=== PATIENT | male | born 1960 | race Caucasian/White ===

== ENCOUNTER 2022-07-19 10:52 | Outpatient (CLI) | payer OTHER, SELFPAY ==
[2022-07-19 13:47] LABS: Chloride* 101 mmol/L (96-114); Potassium* 4.4 mmol/L (3.6-5.1); Sodium* 138 mmol/L (135-149)
[2022-07-19 13:49] LABS: Cholesterol* 135 mg/dL (90-199)
[2022-07-19 13:50] LABS: Blood Urea Nitrogen* 25 mg/dL (7-30); Carbon Dioxide* 30 mmol/L (20-32); Creatinine* 0.9 mg/dL (0.5-1.5); Estimated Glomerular Filt Rate 95 ml/min; Glucose* 86 mg/dL (60-115); Triglycerides* 41 mg/dL (40-149)
[2022-07-19 13:51] LABS: Calcium* 9.4 mg/dL (8.4-10.6); HDL Cholesterol* 46 mg/dL (>=40); LDL Cholesterol Calculated 81 mg/dL (<100)
[2022-07-19 14:21] LABS: PSA Screen* 0.56 ng/mL (0.10-4.00)
== END 2022-07-19 10:53 | disposition home or self-care (01) ==
PROVIDERS: PCP Emergency Medicine; Visit Provider Emergency Medicine
DX: Z00.00 Encounter for general adult medical examination without abnormal findings (principal); E78.5 Hyperlipidemia, unspecified; I10 Essential (primary) hypertension; Z12.5 Encounter for screening for malignant neoplasm of prostate
CPT/HCPCS: 80048; 80061; 84153

== ENCOUNTER 2023-07-30 08:45 | Outpatient (CLI) | payer MEDICARE, OTHER, SELFPAY | END 2023-07-30 08:46 | disposition home or self-care (01) | PROVIDERS: PCP Emergency Medicine; Visit Provider Emergency Medicine | DX: Z00.00 Encounter for general adult medical examination without abnormal findings (principal); I10 Essential (primary) hypertension; E78.5 Hyperlipidemia, unspecified; Z12.5 Encounter for screening for malignant neoplasm of prostate | CPT/HCPCS: 80048; 80061; 84153 ==

== ENCOUNTER 2023-10-16 13:19 | Outpatient (CLI) | payer MEDICARE, OTHER, SELFPAY ==
[2023-10-16 15:06] VITALS: BP 131/77; PULSE 81
--- NOTE | 2023-10-16 15:23 | P.STN_ITS ---
Stress Test Note Date Date of test: 10/16/23 Providers Primary care provider: Dottie Judge Stress test physician: Jones Aguilar Stress Test Note Stress test ordered: Stress Echo Indication for test: Chest pain Results discussion: Patient is a very nice 63-year-old gentleman who presents for the above test after discussion the risks benefits side effects he would like to proceed cardiac stress test medical history form is reviewed entirely. Pretest EKG shows normal sinus rhythm with a ventricular rate of 68 and a blood pressure 149 /87. Preliminary EKG shows some mild ST wave flattening laterally inferiorly but otherwise nonspecific standard Phil protocol is employed for a time course of 11 minutes, he achieved a metabolic equivalent of 12.1 Mets. Maximum heart rate was 171. Subjectively there is no chest pain shortness of breath or any other anginal equivalents, no specific ST wave changes suggestive of ischemia. There were no dysrhythmias. Impression: Negative electrographic portion of stress echo. Conditioning was felt to be excellent Follow up suggested: Await echo images these will be read by Cardiology, clinical correlation with these will be needed, patient left this testing facility in excellent condition.
== END 2023-10-16 13:20 | disposition home or self-care (01) ==
LOC: STRESS 13:20
PROVIDERS: PCP Emergency Medicine; Visit Provider Family Medicine
DX: R07.9 Chest pain, unspecified (principal)
CPT/HCPCS: 93016; 93325; 93351

== ENCOUNTER 2024-08-02 08:07 | Outpatient (CLI) | payer MEDICARE, OTHER, SELFPAY | END 2024-08-02 08:08 | disposition home or self-care (01) | LOC: NFLDREF 08-04 13:40 | PROVIDERS: PCP Emergency Medicine; Referring Provider Emergency Medicine; Visit Provider Emergency Medicine | DX: Z00.00 Encounter for general adult medical examination without abnormal findings (principal); E78.2 Mixed hyperlipidemia; I10 Essential (primary) hypertension | CPT/HCPCS: 80053; 80061; G0103 ==

== ENCOUNTER 2025-08-04 10:28 | Outpatient (CLI) | payer MEDICARE, OTHER, SELFPAY | END 2025-08-04 10:29 | disposition home or self-care (01) | LOC: LKVREF 10:32 | PROVIDERS: PCP Family Medicine; Visit Provider Family Medicine | DX: E78.2 Mixed hyperlipidemia (principal); I10 Essential (primary) hypertension | CPT/HCPCS: 80053; 80061; 82248 ==

== ENCOUNTER 2025-08-31 10:22 | Emergency (ER) | payer MEDICARE, OTHER, SELFPAY ==
[2025-08-31] VITALS (8 sets, daily range): BP systolic 138–160; BP diastolic 73–98; PULSE 37–65; RESP 16–21; TEMP 36.6; O2SAT 99; BMI 24.8
--- OUTSIDE RECORDS SUMMARY | 2025-08-31 10:25 | XMS_ITS | Clinical Summary ---
Author Organization [facility] Address [address] [place] [address] Care Team Providers Care Monomer Recovery Operator Name Role Phone Pcp, No Primary Care Provider Unavailabl e Allergies No known active allergies Medications MedicationSigDispense QuantityRefillsLast FilledStart DateEnd DateStatus atorvastatin (LIPITOR) 10 mg tablet Take 5 mg by mouth at bedtime.05/06/2023ctive lisinopriL (PRINIVIL; ZESTRIL) 5 mg tablet Take 5 mg by mouth once daily.05/10/2023ctive SUMAtriptan (IMITREX) 100 mg tablet Take 100 mg by mouth one time if needed.05/07/2023ctive prednisoLONE acetate 1% ophthalmic (ECONOPRED PLUS, PRED FORTE, OMNIPRED) suspension Place 1 Drop into left eye four times daily. Start after hfseigo3307/05/2023ctive atropine (ISOPTO ATROPINE) 1 % ophthalmic solution Place 1 Drop into left eye.07/05/2023ctive ofloxacin 0.3 % ophthalmic (OCUFLOX) 0.3 % ophthalmic solution Place 1 Drop into left eye four times daily. Start after fmonixj3807/05/2023ctive Encounters DateTypeDepartmentCare TivuKiadktmtksq00/10/2025Orders Only [facility] [address] [place] [address] Shanell Arevalo 1 scan: (1-Ord) ZIOfrom Last 3 Months Social History Tobacco UseTypesPacks/DayYears UsedDateSmoking Tobacco: NeverSmokeless Tobacco: Never Tobacco Cessation:Counseling Given: Not Answered Alcohol UseStandard Drinks/WeekCommentsYes0 (1 standard drink = 0.6 oz pure alcohol)2-3 weeklySex and Gender InformationValueDate RecordedSex Assigned at BirthNot on fileLegal NfnIzxx1409/28/2012 7:00 AM CSTGender IdentityNot on file Sexual OrientationNot on file Last Filed Vital Signs Vital SignReadingTime TakenCommentsBlood Ovqazkli032/7307/05/2023 3:14 PM CDT Yelki971307/05/2023 3:14 PM UGSWzjalfcuafw34.4 ??C (97.5 ??F)07/05/2023 3:00 PM CDTRespiratory Lezo8650 3:14 PM CDTOxygen Kfbxykvtpp788%07/05/2023 3:14 PM CDTInhaled Oxygen Concentration--Adbtya65.5 kg (162 lb)07/05/2023 12:14 PM SCGCboqhx348.7 cm (5' 8)07/05/2023 12:14 PM CDTBody Mass Index24.6307/05/2023 12:14 PM CDT Plan of Treatment Health MaintenanceDue DateLast DoneCommentsTetanus ficvvkj5602/05/1969Depression screening for age 12+1970BMI (ht and wt on same day) for age 18+02/06/1976 Hepatitis C screening for age 18-7902/06/1976Pneumococcal series for age 50+ (1 of 2 - PCV)1977Colonoscopy through age 75002/05/2003Lipids for age 45-75 2003Zoster (shingles) series for age 50+ (1 of 2)02/06/2008COVID-19 vaccine series (2024- season), 09/10/2023, 07/26/2022, Additional history existsInfluenza Vaccine (#1)05/16/2025RSV vaccine for adults or (1 - 1-dose 75+ series)2033Hepatitis B series for 19+Aged Out No longer eligible based on patient's age to complete this topic Medical Devices ImplantedTypeAreaManufacturerDevice IdentifierShelf Expiration DateModel / Serial / LotStrip Silcn 0.75x3.5x125 Sty41 [employer]ian - [id number] Implanted:Qty: 1 on 07/05/2023 [facility] [employer]07/15/2029S2970 / / [id number] Silcn 1.00i.D.X2.1mm Od Sty70 S3018 Labtician - [id number] Implanted:Qty: 1 on 07/05/2023 [facility] [employer]07/15/2029S3018 / / [id number] Procedures Procedure NamePriorityDate/TimeAssociated DiagnosisCommentsEXTENDED HOLTER Gdbwnjd4408/04/2025 Unspecified atrial fibrillation (HC) from Last 3 Months Results * EXTENDED HOLTER (08/04/2025) Narrative Authorizing ProviderResult TypeResult StatusDeng Howell [facility] MDCARDIAC SERVICES ORDFinal Result from Last 3 Months Insurance MAJOR ARAIZA [id number] Advance Directives * Full Code (Latest Code Status on File) Date ActivatedDate UpzblnvprybAtkkpbyk51/21/2023 12:37 07/05/2023 5:32 PM QuestionAnswerCommentsCode Status Discussion:* Reviewed Preferences Care Teams Team MemberRelationshipSpecialtyStart DateEnd Date Pcp, Lisa PCP - General12/14/13
--- OUTSIDE RECORDS SUMMARY | 2025-08-31 10:25 | XMS_ITS | Data Portability ---
Author Organization [place] [facility] [place] [facility] Address [address] [place] [address] Care Team Providers Care Radiation Oncology Nurse Name Role Phone LINDA FUNEZ Referring Provider [phone] Assessment No assessment recorded. Plan of Treatment Reminders Order DateSubmit DateProviderLast Modified ByOrganization DetailsLast Modified TimeDetailsAppointmentsLAB BLOOD DRAW10/19/2025 10:10AMLAB-EDINANot availableNot availableNot availableESTABLISHED 15010/19/2025 10:30AMThais Flores MDNot availableNot availableNot availableLabPSA, serum or ohhkct47 ssambUa[facility], [address], [place], [address], 21 11:53:47PSA, serum or rabwiy61/03/2025doreilley [facility], [address], [place], [address], 12/20/2024 10:40:37PSA, serum or /13/20230916/swales3[facility], [address], [place], [address], 43 14:52:19 PSA, serum or axdtth64/sierackiUa_[facility], [address], [place], [address], 92/ 11:21:18PSA, serum or tvbaue03/sierackiUa_[facility], [address], [place], [address], 95 10:54:07ReferralNone recorded. ProceduresNone recorded.SurgeriesNone recorded.ImagingNone recorded.Medication OrdersNone recorded. Patient TargetsNo targets recorded. Patient Instructions Encounter Date Encounter Id Patient Instructions Last Modified By Organization Details Last Modified Time 03/01/2024 [id number] rtc 3 months for PSA and set up for baseline MRI. vectiibu83 Not available 03/01/2024 11:32:07 06/04/2024 [id number] will set up for MRI prostate and call with report and follow up plan gcqiogue13 Not available 06/04/2024 11:33:16 09/03/2024 [id number] doing well, plan rtc 3 months for PSA recheck. hoyaxxzy16 Not available 09/03/2024 15:04:43 12/20/2024 [id number] plan rtc 3 month s PSA recheck. dwayne Not available 12/20/2024 10:59:31 04/18/2025 [id number] rtc 6 months PSA check. Not available 04/18/2025 12:00:33 Reason for Referral None Reported. Results Created Date Observation Date Name Description Value Unit Range Abnormal Flag Note LastModifiedBy Organization Detail LastModifiedTime 03/01/2024 03/01/2024 PSA, serum or plasma PSA 0.65 ng /mL 0-4.0 NG/mLNot AvailableUa_[facility]ina [address], [place], [address], 07 11:52:210/SA, serum or plasmaPSA0.70 ng/mL0-4.0 NG/mLNot AvailableUa_edina [address], [place], [address], 29 16:10:0912//242715/SA, serum or plasmaPSA0.48 ng/ml0-4.0 NG/mLNot AvailableUa_[facility]ina [address], [place], [address], Ph [phone]/ 14:10:0504//03/2025PSA, serum or plasmaPSA1.0ng/mL0-4.0 NG/mLNot AvailableUa_[facility]ina [address], [place], [address], [address]/01/2025 16:16:/12/2024PSA, serum or plasmaPSA1.1 ng/ml0-4.0 NG/mLNot AvailableUa_[facility]ina [address], [place], [address], [address] 16:12:1310///MRI, prostate, w/wo contrastNo observation recorded. psbihfk427[facility] [place] [facility] , [place], [address], 50/07/2024 09:19:14 Result Notes None recorded. Problems Name Problem SNOMED Code Status Onset Date Resolution Date Notes Provider Name and Address Organization Details Recorded Time Family history of malignant neoplasm of prostate 283261113 Active 09/16/2023 Nicola Prabhakar MD [address] [place] [address],[address], [address], [facility] Nfzfedt5309/16/2023 12:46:07Prostate kiycds728950679427019Ynkkrr 09/16/2023Nicola Prabhakar MD [address] [place] [address],[address], [address], [facility] Niajmsz5709/16/2023 12:46:08Malignant neoplasm of kfomfcot451459255 Fttbdq4103/01/2024Nicola Prabhakar MD [address] [place] [address],[address], [address], [facility]03/01/2024 11:31:21 Problem Notes None recorded. Procedures Surgical History Date Name Laterality Status Provider Name and Address Organization Details Recorded Time 04/18/2025 DESKTOP SUPPORT ENGINEER/blood draw Yani Prabhakar MD [address] [place] [address],[address], [place], [address], [facility]04/18/2025 11:35:5304VP/blood drawcompletedDezera Esme - [facility]12/20/2024 10:27:3412VP/blood draw completedDezerelly [facility]111/04/2023 14:46:2309 DESKTOP SUPPORT ENGINEER/blood drawcomCarlos Prabhakar MD [address] [place] [address],[address], [place], [address], [facility]06/04/2024 11:04:1406VP/blood drawcompletedDmonica [facility]03/01/2024 10:35:52024Prostate Biopsy ProcedurecomCarlos Prabhakar MD [address] [place] [address],[address], [place], [address], [facility]10/27/2023 15:07:4304Bladder ScancomCarlos Prabhakar MD [address] [place] [address],[address], [address], [facility]09/16/2023 12:32:45fluoroscopy guided cardiac ablation with contrastcomCarlos Prabhakar MD [address] [place] [address],[address], [place], [address], [facility]09/16/2023 12:33:45procedure on retinacomCarlos Prabhakar MD [address] [place] [address],[address], [place], [address], [facility]09/16/2023 12:34:10Sinus SurgerycomCarlos Prabhakar MD [address] [place] [address],[address], [place], [address], [facility]09/16/2023 12:34:16 Imaging Results None recorded. Procedure Notes None recorded. Medical Equipment None Reported. Allergies No known drug allergies Medications Name Sig Start Date Stop Date Status Note LastModified by Organization Details LastModified Time amoxicillin 500 mg capsule 06/04/2024ompletedNot AvailableNot AvailableNot Availableatorvastatin 10 mg tabletTAKE 1/2 TABLET (5 MG) BY MOUTH AT BEDTIMEactiveNot AvailableNot Available Not Availableibuprofen 800 mg hahinp865completedNot AvailableNot AvailableNot Availableofloxacin 0.3 % eye dropsINSTILL 1 DROP IN LEFT EYE FOUR TIMES DAILY09/16/2023ompletedNot AvailableNot AvailableNot Availablesumatriptan 100 mg tabletTAKE 1/2 TABLET (50 MG) BY MOUTH ONCE NEEDED AT ONSET OF MIGRAINE HEADACHE , MAY REPEAT IN 2 HRSMAX DAILY DOSE 200MGactiveNot Available Not AvailableNot Availablehydrocodone 5 mg-acetaminophen 325 mg kubzjn3712/20/2024 completedNot AvailableNot AvailableNot Availableprednisone 20 mg tabletTAKE 2 TABLETS BY MOUTH EVERY DAY FOR 5 DAYS09/16/2023ompletedNot AvailableNot AvailableNot Availableprednisolone acetate 1 % eye drops,suspensionSHAKE LIQUID AND INSTILL 1 DROP IN LEFT EYE FOUR TIMES DAILY09/16/2023ompletedNot Available Not AvailableNot Availablelisinopril 5 mg tabletTAKE 1 TABLET (5 MG) BY MOUTH DAILYactiveNot AvailableNot AvailableNot Availablelevofloxacin 500 mg tabletTAKE 1 TABLET EVERY 24 HOURS BY ORAL ROUTE FOR 3 DAYS.4completedNot AvailableNot AvailableNot Availablegentamicin 40 mg/mL injection solutionTake 80 mg by injection route.4completedNot AvailableNot AvailableNot Availableatropine 1 % eye dropsINSTILL 1 DROP IN LEFT EYE TWICE DAILY09/16/2023 completedNot AvailableNot AvailableNot Availablefluticasone propionate 50 mcg/actuation nasal spray,suspensionUSE 2 SPRAYS INTRANASALLY EVERY DAY INTO EACH NOSTRILactiveNot AvailableNot AvailableNot AvailableGaviLyte-G 236 gram- 22.74 gram-6.74 gram-5.86 gram oral solution1 DAY PRIOR TO PROCEDURE BETWEEN 4- 6PM DRINK 80Z EVERY 15 MINS UNTIL HALF GALLON IS GONE. 6 HOURS PRIOR DRINK 8OZ EVERY 15 MINUTES UNTIL GONE4completedNot AvailableNot AvailableNot AvailablePaxlovid 300 mg (150 mg x 2)-100 mg tablets in a dose packTK 2 NIRMATRELVIR TS AND 1 RITONAVIR T TOGETHER PO BID FOR 5 DAYS4completed Not AvailableNot AvailableNot Available Vitals Date Recorded Body height Body mass index (BMI) Body weight Provider Name and Address Organization Details Last Updated DateTime 12/20/2024 172.72 cm 25.1 kg/m2 05297.74 g Deborah Goncalves [facility] 12/20/2024 10:26:28 Date Recorded Body height Body mass index (BMI) Body weight Provider Name and Address Organization Details Last Updated DateTime 03/01/2024 172.72 cm 25.1 kg/m2 79596.74 g Deboarh Bowers [facility] 03/01/2024 10:33:50 Date Recorded Body height Body mass index (BMI) Body weight Provider Name and Address Organization Details Last Updated DateTime 04/18/2025 172.72 cm 25.1 kg/m2 74329.74 g Nicola Prabhakar MD [address] [place] [address], [address] [place] [address] 04/18/2025 11:35:28 Date Recorded Body height Body mass index (BMI) Body weight Provider Name and Address Organization Details Last Updated DateTime 06/04/2024 172.72 cm 25.1 kg/m2 03489.74 g Nicola Prabhakar MD [address] [place] [address], [address] [place] [address] 06/04/2024 11:03:45 Date Recorded Body height Body mass index (BMI) Body weight Provider Name and Address Organization Details Last Updated DateTime 09/03/2024 172.72 cm 25.1 kg/m2 56317.74 Deborah Bowers [facility] 09/03/2024 14:45:55 Social History Question Answer Notes LastModified by Organization D etails LastModified Time Tobacco Smoking Status Never Smoker Nicola Prabhakar MD [address] [place] [address], [address], [facility]09/16/2023 12:33:21What Is Your Level Of Caffeine Consumption?Odgmylhlxsfuwrvu00Aupimlwcqdp not /02/2024What Was The Date Of Your Most Recent Tobacco Screening?12/20/2024doreilleyInformation not ucdbtybbd22/07/2025Have You Ever Been Counseled For Unhealthy Alcohol Use?No dsierackiInformation not rczkwuzff70/17/2024What Is Your Relationship Status? MarrieddsierackiInformation not hkuwfkejt08/17/2024How Many Days In The Past Year Have You Consumed 5 Or More Drinks?0dsierackiInformation not available 03/01/2024 Sex: Unknown Functional Status Question Answer Note LastModified by Organization D etails LastModified Time Do you use any illicit or recreational drugs? No dsierackiInformation not kpbfynpmb04/17/2024o you or have you ever used any other forms of tobacco or nicotine?NodsierackiInformation not available 03/01/2024What is your level of alcohol consumption?Hwjeyesodbtsomii56 Information not zztqptvbo82/02/2024re you currently employed?Yesdsieracki Information not qqyqcthqh88/17/2024 Mental Status None recorded. Family History Relationship Description Onset Age of this Age Resolved Age Notes LastModified by Organization Details LastModified Time Father Family history of malignant neop lasm of prostate yzkipsyz83Fip dsccqequj06/02/2024 12:33:06FatherFamily history of cardiac wcutnjfkwdtynlnq17Xki xospkmuvw75/02/2024 12:33:11 Medical History Condition Response Diabetes N Sexually Transmitted Infection N Other N Bleeding Disorder N High Blood Pressure Y Kidney Stones N High Cholesterol Y GERD/Acid Reflux N Heart Disease N Cancer N Lung Disease N Depression N Immunizations Vaccine Type Date Status Note Provider Nam e and Address Organization Details Recorded Time Influenza, split virus, quadrivalent, preservative completed Natividad youngblood [facility] Oqvnbil0509/19/2023 08:50:49Influenza, split virus, quadrivalent, tyupypcqglxc24/01/2021completedDebra Graf youngblood [facility] Ggustci5709/19/2023 08:50:49Influenza, recombinant, quadrivalent, PF2completedDebra Eva null, [facility]09/19/2023 08:50:49zoster mxvwaunpkps63/06/2020completed Natividad [place] null, [facility]09/19/2023 08:50:49zoster cmzbmmcseot80/30/2019completed Natividad [place] null, [facility]09/19/2023 08:50:49Influenza, adjuvanted, quadrivalent, PF 08/08/2023ompletedDebra Eva null, [facility]09/19/2023 08:50:49COVID-19, mRNA, LNP-S, PF, 30 mcg/0.3 mL dose11/08/2020ompletedDebra Eva null, [facility]09/19/2023 08:50:49COVID-19, mRNA, LNP-S, PF, 30 mcg/0.3 mL dose11/29/2020ompletedDebra [place] null, [facility]09/19/2023 08:50:49COVID-19, mRNA, LNP-S, PF, 30 mcg/0.3 mL dose08/03/2021ompletedDebra Eva null, [facility]09/19/2023 08:50:49Pneumococcal conjugate PCV20, polysaccharide VIN768 conjugate, adjuvant, PF07/30/2023ompletedDebra Eva null, [facility]09/19/2023 08:50:49COVID-19, mRNA, LNP-S, PF, 30 mcg/0.3 mL dose, allie-wbspfxr4002/28/2022ompletedDebra [place] null, [facility]09/19/2023 08:50:49COVID-19, mRNA, LNP-S, bivalent, PF, 30 mcg/0.3 mL dose07/26/2022ompletedDebra [place] null, [facility]09/19/2023 08:50:49RSV, recombinant, protein subunit RSVpreF, adjuvant reconstituted, 0.5 mL, PF08/08/2023ompletedDebra [place] null, [facility]09/19/2023 08:50:49COVID-19, mRNA, LNP-S, PF, allie- sucrose, 30 mcg/0.3 mL09/10/2023ompletedDebra Eva null, [facility]09/19/2023 08:50:32Habn1510/16/2012completedDebra Eva null, [facility]09/19/2023 08:50:78Viuu8509/16/2006completedDebra Eva null, [facility]09/19/2023 08:50:41Vzsn87/15/2023completedDebra Eva null, [facility]09/19/2023 08:50:49Influenza, split virus, trivalent, kvctganbtreh31/11/2003completedDebra [place] null, [facility]09/19/2023 08:50:49Influenza, split virus, trivalent, PF 10/16/2012completedDebra Eva null, [facility]09/19/2023 08:50:49Influenza, split virus, trivalent, PF 07/17/2007completedDebra [place] null, [facility]09/19/2023 08:50:49Influenza, split virus, trivalent, PF 09/09/2008completedDebra [place] null, [facility]09/19/2023 08:50:49Influenza, split virus, quadrivalent, PF09/30/2016completedDebra Eva null, [facility]09/19/2023 08:50:49COVID-19, mRNA, LNP-S, PF, allie- sucrose, 30 mcg/0.3 mL06/28/2024ompletedDezera Sieracki null, [place] [address]11/04/2023 14:46:00Influenza, high-dose, trivalent, PF 06/28/2024ompletedDezera Sieracki null, [place] [address]11/04/2023 14:46:01 Past Encounters Encounter ID Performer Location Encounter Start Date Encounter Closed Date Diagnosis/Indication Diagnosis SNOMED-CT Code Diagnosis ICD10 Code Diagnosis IMO Codes Diagnosis Note [id number] Nicola Prabhakar MD _[facility] [address] [place] [address] 09/16/2023 11:39:00 09/22/2023 11:55:59 Prostate nodule 860954728969188 N40.2 Family history of malignant neoplasm of wrtizluq293586108X96.42 [id number] [place] [place] [address] 10/27/2023 14:15:38011/03/2023 12:19:38Prostate dzeapn336854115234576X19.2 [id number] [place] [address] 12/01/2023 16:47:42012/02/2023 09:59:15Malignant neoplasm of ulwordil095021453I82 3+3 low volume low jrub318245OluyRomel [place] [address] 03/01/2024 10:12:00003/02/2024 11:57:43Family history of malignant neoplasm of yvvjpgqh887226614H52.42 Malignant neoplasm of ufwsjuai072284257S71 3+3 low volume low risk on active surveillance.[id number] [place]ley [place] [place] [address] 06/04/2024 10:47:22006/07/2024 09:30:38Malignant neoplasm of jvhwqjiq566904604U71 3+3 low volume low risk on active surveillance.Family history of malignant neoplasm of dbfaarpq570506299S01.42 [id number] [place]ley [place] [address] 09/03/2024 14:26:39111/07/2023 10:53:58Malignant neoplasm of mpmgftci856962261G97 3+3 low volume low risk on active surveillance.[id number] [place]ley [place] [address] 12/20/2024 10:10:5204 11:19:55Malignant neoplasm of djqexetp994014751E23 3+3 low volume low risk on active surveillance.[id number] Prabhakar MDUA_[facility] [address] [place] [address] 04/18/2025 11:19:2608 09:49:28Malignant neoplasm of doutzyhs909118156Y17 3+3 low volume low risk on active surveillance. Health Concerns Section Related Observation LastModified by Organization Detai ls LastModified Time None Recorded Concern Status LastModified by Organization Details LastModified Time None Recorded Advance Directives Directive None Recorded Payers Insurance Date Sequence Insurance Name Policy Number Policy Lundy Covered Member ID Lundy Member ID Guarantor Name 04/18/2025 2 [place] ([place]ARE[place] Kimo [id number] J [id number] - DOS PRIOR TO 2024 (PPO)Kimo [id number] J [id number] B-[place]: [facility] INCPeter Tammy [id number] J Nowjeaninei [facility] - DOS 09/15/2024 AND AFTERPeter J [id number] J [id number] HEALTHCAREPeter J Nowjeaninei [id number] J Nowacki Notes Date Note Type Note Provider Name and Address Orga nization Details Recorded Time 03/01/2024 text/html CaP on follow up PSA today was 0.65 which is stable. voiding OK, no heme/dysuria.Nicola Prabhakar MD [address] [facility],[address], [address], [facility] [place] Dqkddtg7503/01/2024 11:33:0806/04/2024text/html follow up CaP on . PSA stable 0.7 today and due to get scheduled for baseline MRI. voiding fine, no heme/dysuriaNicola Prabhakar MD [address] [place] [address],[address], [place], [address], [facility] Ptyytzk5106/04/2024 11:34:3412text/html follow up CaP on . had MRI done after last visit and showed consistent with CaP. PSA today down to 0.48. voiding OK, no heme/dysuria.Nicola Prabhakar MD [address] [place] [address],[address], [address], [facility] Oudhecd36/20/2024 15:06:1104text/html follow up low volume 3+3 CaP on . PSA up slightly to 1.0 today. voiding OK, no heme/dysuria.Deborah youngblood [facility] Nolnspf9412/20/2024 10:59:5008text/html CaP on PSA up slightly to 1.1 today. voiding OK, no heme/dysuria.Nicola Prabhakar MD [address] [place] [address],[address], [place], [address], [facility] Jbaapfi4604/18/2025 12:01:24
--- NOTE | 2025-08-31 11:15 | ED.GENADULT ---
HPI - General Adult General Chief complaint: Arrhythmia/Palpitations Stated complaint: Hypertension Time Seen by Provider: 08/31/25 11:00 Source: patient Mode of arrival: ambulatory Limitations: no limitations History of Present Illness HPI narrative: 65-year-old male presenting today with labile blood pressures and palpitations. Patient states that he checked his blood pressures at home there 140s systolic and then he would check minutes later in the be in the 160s systolic. He states that he also has frequent palpitations. This is not new for him he has had palpitations for many years. He was noticed to have palpitations on his physical exam in July he just recently had a ZIO patch placed. He does have an appointment with cardiology in approximately 5 weeks. During his examination in July it was found that he had normal sinus rhythm with frequent PVCs. According to the patient the did look at his eye a patch and made him a follow-up appointment in 5 weeks, does not appear to be in emergency that was noticed on his eye a patch read out. He remains asymptomatic as far as dizziness, chest pain or shortness of breath. He does not feel lightheaded or presyncopal. He is not nauseated, has not had any vomiting. States that he checks blood pressures daily. Related Data Previous Rx's ?Medication ?Instructions ?Recorded fluticasone propionate 50 2 spray intranasal QDAY #16 grams 03/17/25 mcg/actuation nasal spray,suspension (Flonase Allergy Relief) atorvastatin 10 mg tablet 5 mg (1/2 x 10 mg) PO .Bedtime #45 08/08/25 tabs lisinopril 5 mg tablet 5 mg PO DAILY #90 tabs 08/08/25 sumatriptan succinate 100 mg tablet 50 mg (1/2 x 100 mg) PO ONCE PRN 08/08/25 migraine headache #9 tabs Allergies Allergy/AdvReac Type Severity Reaction Status Date / Time No Known Drug Allergies Allergy Verified 08/04/25 10:08 Review of Systems Status of ROS: Reports: 10 or more systems reviewed and unremarkable except as noted in History and below [facility] Medical History Cardiac dysrhythmia ?I49.9 - Cardiac arrhythmia, unspecified (ICD-10) History of atrial fibrillation ?Z86.79 - Personal history of other diseases of the circulatory system (ICD-10) Allergic rhinitis ?J30.9 - Allergic rhinitis, unspecified (ICD-10) Knee pain ?M25.569 - Pain in unspecified knee (ICD-10) Prostate CA ?C61 - Malignant neoplasm of prostate (ICD-10) Chest pain ?R07.9 - Chest pain, unspecified (ICD-10) Encounter for preventive care ?Z00.00 - Encounter for general adult medical examination without abnormal findings (ICD-10) Prostate nodule ?N40.2 - Nodular prostate without lower urinary tract symptoms (ICD-10) Retinal detachment ?H33.20 - Serous retinal detachment, unspecified eye (ICD-10) Leukopenia ?D72.819 - Decreased white blood cell count, unspecified (ICD-10) COVID ?U07.1 - COVID-19 (ICD-10) Screening due ?Z13.9 - Encounter for screening, unspecified (ICD-10) Family history of prostate cancer ?Z80.42 - Family history of malignant neoplasm of prostate (ICD-10) GERD (gastroesophageal reflux disease) ?K21.9 - Gastro-esophageal reflux disease without esophagitis (ICD-10) Surgical History History of vasectomy (10/16/12) ?Z98.52 - Vasectomy status (ICD-10) History of nasal septoplasty ?Z98.890 - Other specified postprocedural states (ICD-10) Family History Father Coronary artery disease Prostate cancer Social History Narrative: exercise 5 days a week, 3-4 etoh/week, no tobacco, What is your current living situation?: I presently have a place to live Problems where you live: no known problems In the past 12 months, utilities in danger of being shut off: no In past 12 months, lack of transportation kept you from medical appts, meetings, work, or getting things needed for daily living: no In the past 12 mos, have been you worried that your food would run out before you had money to buy more?: never true In the past 12 mos, the food you bought just didn't last and you didn't have money to buy more?: never true Smoking Status: Never smoker How often does anyone, including family, friends and others, physically hurt you: never How often does anyone, including family, friends and others, insult or talk down to you: never How often does anyone, including family, friends and others, threaten you with harm: never How often does anyone, including family, friends and others, scream or curse at you: never Exam Narrative: Exam Narrative: Well-nourished well-developed patient in no acute distress. Alert and oriented. Answers questions appropriately. Mood and affect are appropriate. Thoughts are goal oriented and rational. No tangential or magical thinking noted. Patient speaks in full sentences without needing to catch his breath. HEENT: Normocephalic atraumatic. Pupils are equally round reactive to light. Extraocular muscles are intact. Conjunctivae are moist without any icterus noted. Moist mucous membranes. Cardiovascular: Heart is regular rate and rhythm S1 and S2 are present without any murmurs. Frequent PVCs are auscultated. Lungs: Clear to auscultation bilaterally no wheezes rhonchi or rales are appreciated. Extremities: Bilateral lower extremities are without edema. Skin: Well perfused without any obvious rashes. Const: Vital Signs, click to edit/add: Vital Signs - 24 hr 08/31/25 10:33 Temperature 97.9 F Pulse Rate [Pulse Oximeter] 37 L Respiratory Rate 18 Blood Pressure [Ri ght Upper Arm] 160/73 H Pulse Oximetry 99 Oxygen Delivery Me thod Room Air Course Course ED Course: Blood pressure was 160/73 on arrival, 141 systolic after resting. EKG showed normal sinus rhythm with a pulse of 69, frequent premature ventricular complexes. Patient has no evidence of orthostatic hypotension. Vital Signs Vital signs: Initial Vital Signs Temperature 97.9 F 08/31/25 10:33 Temperature Source Temporal Artery Scan 08/31/25 10:33 Pulse Rate 37 L 08/31/25 10:33 Pulse Rhythm Irregular 08/31/25 10:33 Respiratory Rate 18 08/31/25 10:33 Blood Pressure 160/73 H 08/31/25 10:33 Blood Pressure Mean 102 08/31/25 10:33 Blood Pressure Position Sitting 08/31/25 10:33 Pulse Oximetry 99 08/31/25 10:33 Oxygen Delivery Method Room Air 08/31/25 10:33 Vital Signs Temperature 97.9 F 08/31/25 10:33 Pulse Rate 37 L 08/31/25 10:33 Respiratory Rate 18 08/31/25 10:33 Blood Pressure 160/73 H 08/31/25 10:33 Pulse Oximetry 99 08/31/25 10:33 Oxygen Delivery Method Room Air 08/31/25 10:33 Temperature 97.9 F 08/31/25 10:33 Pulse Rate 37 L 08/31/25 10:33 Respiratory Rate 18 08/31/25 10:33 Blood Pressure 160/73 H 08/31/25 10:33 Pulse Oximetry 99 08/31/25 10:33 Oxygen Delivery Method Room Air 08/31/25 10:33 Medical Decision Making MDM Narrative Medical decision making narrative: 65-year-old male with frequent PVCs and hypertension. Patient is otherwise asymptomatic. At this time recommend he follow up with primary care provider to discuss better blood pressure control verses adding a beta-devang to control the PVCs. Patient already has an appoint with Cardiology scheduled. He has already been worked up for his symptoms. I do not think any new workup is necessary today. ECG Data Attestation: I personally reviewed and interpreted this ECG as follows: Discharge Plan Discharge Clinical Impression: Heart palpitations, Elevated blood pressure reading Patient Disposition: Home, Self-Care Condition: Stable Additional Instructions: Your EKG today shows extra heartbeats called premature ventricular contractions. These were the same heart beats that were seen during your physical examination in July. These are not life-threatening. Recommend you follow-up with your primary care provider to discuss either increasing your lisinopril dose or adding a beta-devang to help decrease the amount of extra heartbeats. Follow-up with cardiology as scheduled. Prescriptions: No Action fluticasone propionate [Flonase Allergy Relief] 50 mcg/actuation spray,suspension 2 spray intranasal QDAY Qty: 16 5RF Rx Instructions: administer into each nostril atorvastatin 10 mg tablet 5 mg PO .Bedtime Qty: 45 3RF lisinopril 5 mg tablet 5 mg PO DAILY Qty: 90 3RF sumatriptan succinate 100 mg tablet 50 mg PO ONCE PRN (Reason: migraine headache) Qty: 9 3RF Rx Instructions: take one tablet at onset of headache , may repeat in 2 hrs max daily dose 200mg Follow Up/Referrals: Deng Uribe MD [Primary Care Provider, Family Practice] Stand Alone Forms: [employer] Info Instructions
--- OUTSIDE RECORDS SUMMARY | 2025-08-31 11:24 | XMS_ITS | Data Portability ---
Author Organization [place] [facility] [place] [facility] Address [address] [place] [address] Care Team Providers Care Administrative Specialist Name Role Phone LINDA FUNEZ Referring Provider Assessment No assessment recorded. Plan of Treatment Reminders Order DateSubmit DateProviderLast Modified ByOrganization DetailsLast Modified TimeDetailsAppointmentsLAB BLOOD DRAW10/19/2025 10:10AMLAB-EDINANot availableNot availableNot availableESTABLISHED 15010/19/2025 10:30AMThais Flores MDNot availableNot availableNot availableLabPSA, serum or ukrhwo91 ss[facility], [address], [place], [address], 41 11:53:47PSA, serum or oapncj09/03/2025doreilley [facility], [address], [place], [address], 12/20/2024 10:40:37PSA, serum or qhxuyl13/13/20230916/swales3[facility], [address], [place], [address], 40 14:52:19 PSA, serum or rrxgix68/sierackiUa_[facility], [address], [place], [address], 16/ 11:21:18PSA, serum or davzxw19/sierackiU[facility], [address], [place], [address], 64 10:54:07ReferralNone recorded. ProceduresNone recorded.SurgeriesNone recorded.ImagingNone recorded.Medication OrdersNone recorded. Patient TargetsNo targets recorded. Patient Instructions Encounter Date Encounter Id Patient Instructions Last Modified By Organization Details Last Modified Time 03/01/2024 [id number] rtc 3 months for PSA and set up for baseline MRI. [email or web address] Not available 03/01/2024 11:32:07 06/04/2024 [id number] will set up for MRI prostate and call with report and follow up plan [email or web address] Not available 06/04/2024 11:33:16 09/03/2024 [id number] doing well, plan rtc 3 months for PSA recheck. [email or web address] Not available 09/03/2024 15:04:43 12/20/2024 [id number] plan rtc 3 month s PSA recheck. dwayne Not available 12/20/2024 10:59:31 04/18/2025 [id number] rtc 6 months PSA check. [email or web address] Not available 04/18/2025 12:00:33 Reason for Referral None Reported. Results Created Date Observation Date Name Description Value Unit Range Abnormal Flag Note LastModifiedBy Organization Detail LastModifiedTime 03/01/2024 03/01/2024 PSA, serum or plasma PSA 0.65 ng /mL 0-4.0 NG/mLNot AvailableUa_[facility]ina [address], [place], [address], 78 11:52:210/SA, serum or plasmaPSA0.70 ng/mL0-4.0 NG/mLNot AvailableUa_[facility] [address], [place], [address], 26 16:10:0912//769531/SA, serum or plasmaPSA0.48 ng/ml0-4.0 NG/mLNot AvailableUa_[facility] [address], [place], [address], Ph [phone]/ 14:10:0504//03/2025PSA, serum or plasmaPSA1.0ng/mL0-4.0 NG/mLNot AvailableUa_[facility] [address], [place], [address], [address]/01/2025 16:16:/12/2024PSA, serum or plasmaPSA1.1 ng/ml0-4.0 NG/mLNot AvailableUa_[facility] [address], [place], [address], [address] 16:12:1310///MRI, prostate, w/wo contrastNo observation recorded. jtudaak946Hyrdr Radiology [place] [facility] [facility] , [place], [address], 90/07/2024 09:19:14 Result Notes None recorded. Problems Name Problem SNOMED Code Status Onset Date Resolution Date Notes Provider Name and Address Organization Details Recorded Time Family history of malignant neoplasm of prostate [id number] Active 09/16/2023 Nicola Prabhakar MD [address] [place] [address],[address], [address], [facility] Pjejewz8009/16/2023 12:46:07Prostate [id number] 09/16/2023Nicola Prabhakar MD [address] [place] [address],[address], [address], [facility] Oozapmc9809/16/2023 12:46:08Malignant neoplasm of [id number] Qhxccb0303/01/2024Nicola Prabhakar MD [address] [place] [address],[address], [address], [facility]03/01/2024 11:31:21 Problem Notes None recorded. Procedures Surgical History Date Name Laterality Status Provider Name and Address Organization Details Recorded Time 04/18/2025 IT NETWORK ARCHITECT/blood draw Yani Prabhakar MD [address] [place] [address],[address], [place], [address], [facility]04/18/2025 11:35:5304VP/blood drawcompletedDezera [facility]/2024 10:27:3412VP/blood draw completedDezerelly [facility]/04/2023 14:46:2309 IT NETWORK ARCHITECT/blood drawcomCarlos Prabhakar MD [address] [place] [address],[address], [place], [address], [facility]06/04/2024 11:04:1406VP/blood drawcompletedDmonica [facility]03/01/2024 10:35:52024Prostate Biopsy ProcedurecomCarlos Prabhakar MD [address] [place] [address],[address], [place], [address], [facility]10/27/2023 15:07:4304Bladder ScancomCarlos Prabhakar MD [address] [place] [address],[address], [place], [address], [facility]09/16/2023 12:32:45fluoroscopy guided cardiac ablation with contrastcomCarlos Prabhakar MD [address] [place] [address],[address], [place], [address], [facility]09/16/2023 12:33:45procedure on retinacomCarlos Prabhakar MD [address] [place] [address],[address], [place], [address], [facility]09/16/2023 12:34:10Sinus SurgerycomCarlos Prabhakar MD [address] [place] [address],[address], [place], [address], [facility]09/16/2023 12:34:16 Imaging Results None recorded. Procedure Notes None recorded. Medical Equipment None Reported. Allergies No known drug allergies Medications Name Sig Start Date Stop Date Status Note LastModified by Organization Details LastModified Time amoxicillin 500 mg capsule 06/04/2024ompletedNot AvailableNot AvailableNot Availableatorvastatin 10 mg tabletTAKE 1/2 TABLET (5 MG) BY MOUTH AT BEDTIMEactiveNot AvailableNot Available Not Availableibuprofen 800 mg pmxxsv595completedNot AvailableNot AvailableNot Availableofloxacin 0.3 % eye dropsINSTILL 1 DROP IN LEFT EYE FOUR TIMES DAILY09/16/2023ompletedNot AvailableNot AvailableNot Availablesumatriptan 100 mg tabletTAKE 1/2 TABLET (50 MG) BY MOUTH ONCE NEEDED AT ONSET OF MIGRAINE HEADACHE , MAY REPEAT IN 2 HRSMAX DAILY DOSE 200MGactiveNot Available Not AvailableNot Availablehydrocodone 5 mg-acetaminophen 325 mg hxgmlt0212/20/2024 completedNot AvailableNot AvailableNot Availableprednisone 20 mg tabletTAKE [...] Updated DateTime 12/20/2024 172.72 cm 25.1 kg/m2 83800.74 g Deborah Goncalves [facility] 12/20/2024 10:26:28 Date Recorded Body height Body mass index (BMI) Body weight Provider Name and Address Organization Details Last Updated DateTime 03/01/2024 172.72 cm 25.1 kg/m2 41086.74 g Deborah Bowers [facility] 03/01/2024 10:33:50 Date Recorded Body height Body mass index (BMI) Body weight Provider Name and Address Organization Details Last Updated DateTime 04/18/2025 172.72 cm 25.1 kg/m2 02775.74 g Nicola Prabhakar MD [address] [place] [address], [phone] [place] [address] 04/18/2025 11:35:28 Date Recorded Body height Body mass index (BMI) Body weight Provider Name and Address Organization Details Last Updated DateTime 06/04/2024 172.72 cm 25.1 kg/m2 39096.74 g Nicola Prabhakar MD [address] [place] [address], [address] [place] [address] 06/04/2024 11:03:45 Date Recorded Body height Body mass index (BMI) Body weight Provider Name and Address Organization Details Last Updated DateTime 09/03/2024 172.72 cm 25.1 kg/m2 52423.74 Deborah Bowers [facility] 09/03/2024 14:45:55 Social History Question Answer Notes LastModified by Organization D etails LastModified Time Tobacco Smoking Status Never Smoker Nicola Prabhakar MD [address] [place] [address], [address], [facility]09/16/2023 12:33:21What Is Your Level Of Caffeine Consumption?Ldstfurfvnqstyzh59Sveebygayos not uavjaohhs30/02/2024What Was The Date Of Your Most Recent Tobacco Screening?12/20/2024doreilleyInformation not sukyuqpuf20/07/2025Have You Ever Been Counseled For Unhealthy Alcohol Use?No dsierackiInformation not /17/2024What Is Your Relationship Status? MarrieddsierackiInformation not kfcddvimw78/17/2024How Many Days In The Past Year Have You Consumed 5 Or More Drinks?0dsierackiInformation not available 03/01/2024 Sex: Unknown Functional Status Question Answer Note LastModified by Organization D etails LastModified Time Do you use any illicit or recreational drugs? No dsierackiInformation not szgkindhj16/17/2024o you or have you ever used any other forms of tobacco or nicotine?NodsierackiInformation not available 03/01/2024What is your level of alcohol consumption?Accbnxzkhurixhop37 Information not wgpgejxck42/02/2024re you currently employed?Yesdsieracki Information not sispaldky11/17/2024 Mental Status None recorded. Family History Relationship Description Onset Age of this Age Resolved Age Notes LastModified by Organization Details LastModified Time Father Family history of malignant neop lasm of prostate devhuxgp17Wdr qswtzauvd82/02/2024 12:33:06FatherFamily history of cardiac mlcaicyvxswdarlp01Fus zcbevvuiw88/02/2024 12:33:11 Medical History Condition Response Diabetes N Sexually Transmitted Infection N Other N Bleeding Disorder N High Blood Pressure Y Kidney Stones N High Cholesterol Y GERD/Acid Reflux N Heart Disease N Cancer N Lung Disease N Depression N Immunizations Vaccine Type Date Status Note Provider Nam e and Address Organization Details Recorded Time Influenza, split virus, quadrivalent, preservative completed Natividad youngblood [facility] Goxyxka7609/19/2023 08:50:49Influenza, split virus, quadrivalent, uvjmqpidwdep59/01/2021completedDebra Graf youngblood [facility] Evkqwsd5409/19/2023 08:50:49Influenza, recombinant, quadrivalent, PF2completedDebra Eva null, [facility]09/19/2023 08:50:49zoster unhdvsjjuzx31/06/2020completed Natividad Goldcreek null, [facility]09/19/2023 08:50:49zoster ootkolxfxfm14/30/2019completed Natividad [place]creek null, [facility]09/19/2023 08:50:49Influenza, adjuvanted, quadrivalent, PF 08/08/2023ompletedDebra Eva null, [facility]09/19/2023 08:50:49COVID-19, mRNA, LNP-S, PF, 30 mcg/0.3 mL dose11/08/2020ompletedDebra Eva null, [facility]09/19/2023 08:50:49COVID-19, mRNA, LNP-S, PF, 30 mcg/0.3 mL dose11/29/2020ompletedDebra [place]creek null, [facility]09/19/2023 08:50:49COVID-19, mRNA, LNP-S, PF, 30 mcg/0.3 mL dose08/03/2021ompletedDebra Eva null, [facility]09/19/2023 08:50:49Pneumococcal conjugate PCV20, polysaccharide [id number] conjugate, adjuvant, PF07/30/2023ompletedDebra Eva null, [facility]09/19/2023 08:50:49COVID-19, mRNA, LNP-S, PF, 30 mcg/0.3 mL dose, allie-mylgkqi8602/28/2022ompletedDebra [place]creek null, [facility]09/19/2023 08:50:49COVID-19, mRNA, LNP-S, bivalent, PF, 30 mcg/0.3 mL dose07/26/2022ompletedDebra [place] null, [facility]09/19/2023 08:50:49RSV, recombinant, protein subunit RSVpreF, adjuvant reconstituted, 0.5 mL, PF08/08/2023ompletedDebra [place] null, [facility]09/19/2023 08:50:49COVID-19, mRNA, LNP-S, PF, allie- sucrose, 30 mcg/0.3 mL09/10/2023ompletedDebra Eva null, [facility]09/19/2023 08:50:57Ztae7810/16/2012completedDebra Eva null, [facility]09/19/2023 08:50:60Ezht9609/16/2006completedDebra Eva null, [facility]09/19/2023 08:50:79Kekp17/15/2023completedDebra Eva null, [facility]09/19/2023 08:50:49Influenza, split virus, trivalent, wjewfelzlomn54/11/2003completedDebra [place] null, [facility]09/19/2023 08:50:49Influenza, split virus, trivalent, PF 10/16/2012completedDebra Eva null, [facility]09/19/2023 08:50:49Influenza, split virus, trivalent, PF 07/17/2007completedDebra [place]creek null, [facility]09/19/2023 08:50:49Influenza, split virus, trivalent, PF 09/09/2008completedDebra [place]creek null, [facility]09/19/2023 08:50:49Influenza, split virus, quadrivalent, PF09/30/2016completedDebra Eva null, [facility]09/19/2023 08:50:49COVID-19, mRNA, LNP-S, PF, allie- sucrose, 30 mcg/0.3 mL06/28/2024ompletedDezera Sieracki null, [place] 7862711/04/2023 14:46:00Influenza, high-dose, trivalent, PF 06/28/2024ompletedDezera Sieracki null, [place] 7862711/04/2023 14:46:01 Past Encounters Encounter ID Performer Location Encounter Start Date Encounter Closed Date Diagnosis/Indication Diagnosis SNOMED-CT Code Diagnosis ICD10 Code Diagnosis IMO Codes Diagnosis Note [id number] Nicola Prabhakar MD _[facility] [address] [facility],[address] [place] [address] 09/16/2023 11:39:00 09/22/2023 11:55:59 Prostate nodule [id number] N40.2 Family history of malignant neoplasm of qyvpqlme731703337Z72.42 [id number] Mobley [address] [place] [address] 10/27/2023 14:15:38011/03/2023 12:19:38Prostate wvfihw823024844161187U22.2 [id number] Mobley [address] [place] [address] 12/01/2023 16:47:42012/02/2023 09:59:15Malignant neoplasm of wqpoayjl327520955P77 3+3 low volume low trja104759HnznRomel Mobley [address] [place] [address] 03/01/2024 10:12:00003/02/2024 11:57:43Family history of malignant neoplasm of ggzwerdn747817427U93.42 Malignant neoplasm of krfvihfb417121863J63 3+3 low volume low risk on active surveillance.[id number] Mobley [address] [place] [address] 06/04/2024 10:47:22006/07/2024 09:30:38Malignant neoplasm of ktzvitke026412903H98 3+3 low volume low risk on active surveillance.Family history of malignant neoplasm of mzntvmod039271162E82.42 [id number] Mobley [address] [place] [address] 09/03/2024 14:26:39111/07/2023 10:53:58Malignant neoplasm of jiqrbjao035882779B86 3+3 low volume low risk on active surveillance.[id number] Mobley [address] [place] [address] 12/20/2024 10:10:5204 11:19:55Malignant neoplasm of qtjokpwe836062801Z82 3+3 low volume low risk on active surveillance.[id number] Prabhakar MDUA_[facility] [address] [place] [address] 04/18/2025 11:19:2608 09:49:28Malignant neoplasm of cxijplbs486303543K06 3+3 low volume low risk on active surveillance. Health Concerns Section Related Observation LastModified by Organization Detai ls LastModified Time None Recorded Concern Status LastModified by Organization Details LastModified Time None Recorded Advance Directives Directive None Recorded Payers Insurance Date Sequence Insurance Name Policy Number Policy Lundy Covered Member ID Lundy Member ID Guarantor Name 04/18/2025 2 [place] Kimo [id number] J [id number] - DOS PRIOR TO 2024 (PPO)Kimo [id number] J [id number] B-[place]: [facility] GOVERNMENT SERVICES INCPeter Tammy [id number] J Nowjeaninei [facility] - DOS 09/15/2024 AND AFTERPeter J [id number] J [id number] HEALTHCAREPeter J Nowjeaninei [id number] J Nowacki Notes Date Note Type Note Provider Name and Address Orga nization Details Recorded Time 03/01/2024 text/html CaP on follow up PSA today was 0.65 which is stable. voiding OK, no heme/dysuria.Nicola Prabhakar MD [address] [facility],[address], [place], [address], [facility] [place] Drsposp4603/01/2024 11:33:0806/04/2024text/html follow up CaP on . PSA stable 0.7 today and due to get scheduled for baseline MRI. voiding fine, no heme/dysuriaNicola Prabhakar MD [address] [place] [address],[address], [place], [address], [facility] Lhkftbd7006/04/2024 11:34:3412text/html follow up CaP on . had MRI done after last visit and showed consistent with CaP. PSA today down to 0.48. voiding OK, no heme/dysuria.Nicola Prabhakar MD [address] [place] [address],[address], [place], [address], [facility] Bmltyqb00/20/2024 15:06:1104text/html follow up low volume 3+3 CaP on . PSA up slightly to 1.0 today. voiding OK, no heme/dysuria.Deborah youngblood [facility] Qqdaxoe9612/20/2024 10:59:5008text/html CaP on PSA up slightly to 1.1 today. voiding OK, no heme/dysuria.Nicola Prabhakar MD [address] [place] [address],[address], [place], [address], [facility] Cygfbpd9604/18/2025 12:01:24
== END 2025-08-31 11:45 | disposition home or self-care (01) ==
PROVIDERS: Emergency Provider Family Medicine; PCP Family Medicine
DX: R00.2 Palpitations (principal); R03.0 Elevated blood-pressure reading, without diagnosis of hypertension; I49.3 Ventricular premature depolarization
CPT/HCPCS: 99283

== ENCOUNTER 2025-09-03 08:53 | Emergency (ER) | payer MEDICARE, OTHER, SELFPAY ==
[2025-09-03] VITALS (10 sets, daily range): BP systolic 139–160; BP diastolic 75–79; PULSE 40–66; RESP 13–18; TEMP 36.3; O2SAT 96–100; BMI 24.8
--- OUTSIDE RECORDS SUMMARY | 2025-09-03 08:56 | XMS_ITS | Data Portability ---
Author Organization [place] [facility] [place] [facility] Address [address] [place] [address] Care Team Providers Care Addiction Professional Name Role Phone LINDA FUNEZ Referring Provider Assessment No assessment recorded. Plan of Treatment Reminders Order DateSubmit DateProviderLast Modified ByOrganization DetailsLast Modified TimeDetailsAppointmentsLAB BLOOD DRAW10/19/2025 10:10AMLAB-EDINANot availableNot availableNot availableESTABLISHED 15010/19/2025 10:30AMThais Flores MDNot availableNot availableNot availableLabPSA, serum or ssambU[facility], [address], [place], [address], 72 11:53:47PSA, serum or /03/2025doreilley [facility], [address], [place], [address], 12/20/2024 10:40:37PSA, serum or iwhsjv49/13/20230916/swales3[facility], [address], [place], [address], 07 14:52:19 PSA, serum or dzilsj57/sierackiUa_[facility], [address], [place], [address], 05/ 11:21:18PSA, serum or uqdqua75/sieracki[facility], [address], [place], [address], 52 10:54:07ReferralNone recorded. ProceduresNone recorded.SurgeriesNone recorded.ImagingNone recorded.Medication OrdersNone recorded. Patient TargetsNo targets recorded. Patient Instructions Encounter Date Encounter Id Patient Instructions Last Modified By Organization Details Last Modified Time 03/01/2024 [id number] rtc 3 months for PSA and set up for baseline MRI. [email or web address] Not available 03/01/2024 11:32:07 06/04/2024 [id number] will set up for MRI prostate and call with report and follow up plan [email or web address] Not available 06/04/2024 11:33:16 09/03/2024 [id number] doing well, plan rtc 3 months for PSA recheck. [email or web address] Not available 09/03/2024 15:04:43 12/20/2024 [id number] plan rtc 3 month s PSA recheck. dwayne Not available 12/20/2024 10:59:31 04/18/2025 [id number] rtc 6 months PSA check. pbqfipvi62 Not available 04/18/2025 12:00:33 Reason for Referral None Reported. Results Created Date Observation Date Name Description Value Unit Range Abnormal Flag Note LastModifiedBy Organization Detail LastModifiedTime 03/01/2024 03/01/2024 PSA, serum or plasma PSA 0.65 ng /mL 0-4.0 NG/mLNot AvailableUa_[facility] [address], [place], [address], 63 11:52:210/SA, serum or plasmaPSA0.70 ng/mL0-4.0 NG/mLNot AvailableU[facility] [address], [place], [address], 79 16:10:0912//433014/SA, serum or plasmaPSA0.48 ng/ml0-4.0 NG/mLNot AvailableU[facility] [address], [place], [address], Ph [phone]/ 14:10:0504//03/2025PSA, serum or plasmaPSA1.0ng/mL0-4.0 NG/mLNot AvailableU[facility] [address], [place], [address], [address]/01/2025 16:16:/12/2024PSA, serum or plasmaPSA1.1 ng/ml0-4.0 NG/mLNot AvailableUa_[facility] [address], [place], [address], [address] 16:12:1310///MRI, prostate, w/wo contrastNo observation recorded. wtkmcrd111[facility] [place] [facility] , [place], [address], 60/07/2024 09:19:14 Result Notes None recorded. Problems Name Problem SNOMED Code Status Onset Date Resolution Date Notes Provider Name and Address Organization Details Recorded Time Family history of malignant neoplasm of prostate [id number] Active 09/16/2023 Nicola Prabhakar MD [address] [place] [address],[address], [address], [facility] Jzkfigf9509/16/2023 12:46:07Prostate [id number] 09/16/2023Nicola Prabhakar MD [address] [place] [address],[address], [address], [facility] Eyatmly0109/16/2023 12:46:08Malignant neoplasm of pjfquikz763389033 Lzypdj7103/01/2024Nicola Prabhakar MD [address] [place] [address],[address], [address], [facility]03/01/2024 11:31:21 Problem Notes None recorded. Procedures Surgical History Date Name Laterality Status Provider Name and Address Organization Details Recorded Time 04/18/2025 CARRIAGE OPERATOR/blood draw Yani Prabhakar MD [address] [place] [address],[address], [place], [address], [facility]04/18/2025 11:35:5304VP/blood drawcompletedDezera [facility] 10:27:3412VP/blood draw completedDezerelly [facility]/04/2023 14:46:2309 CARRIAGE OPERATOR/blood drawcomCarlos Prabhakar MD [address] [place] [address],[address], [place], [address], [facility]06/04/2024 11:04:1406VP/blood drawcompletedDmonica [facility]03/01/2024 10:35:52024Prostate Biopsy ProcedurecomCarlos Prabhakar MD [address] [place] [address],[address], [place], [address], [facility]10/27/2023 15:07:4304Bladder ScancomCarlos Prabhakar MD [address] [place] [address],[address], [address], [facility]09/16/2023 12:32:45fluoroscopy guided cardiac ablation with contrastcomCarlos Prabhakar MD [address] [place] [address],[address], [place], [address], [facility]09/16/2023 12:33:45procedure on retinacomCarlos Prabhakar MD [address] [place] [address],[address], [place], [address], [facility]09/16/2023 12:34:10Sinus SurgerycomCarlos Prabhakar MD [address] [place] [address],[address], [place], [address], [facility]09/16/2023 12:34:16 Imaging Results None recorded. Procedure Notes None recorded. Medical Equipment None Reported. Allergies No known drug allergies Medications Name Sig Start Date Stop Date Status Note LastModified by Organization Details LastModified Time amoxicillin 500 mg capsule 06/04/2024ompletedNot AvailableNot AvailableNot Availableatorvastatin 10 mg tabletTAKE 1/2 TABLET (5 MG) BY MOUTH AT BEDTIMEactiveNot AvailableNot Available Not Availableibuprofen 800 mg ebjmvh755completedNot AvailableNot AvailableNot Availableofloxacin 0.3 % eye dropsINSTILL 1 DROP IN LEFT EYE FOUR TIMES DAILY09/16/2023ompletedNot AvailableNot AvailableNot Availablesumatriptan 100 mg tabletTAKE 1/2 TABLET (50 MG) BY MOUTH ONCE NEEDED AT ONSET OF MIGRAINE HEADACHE , MAY REPEAT IN 2 HRSMAX DAILY DOSE 200MGactiveNot Available Not AvailableNot Availablehydrocodone 5 mg-acetaminophen 325 mg axvbve3512/20/2024 completedNot AvailableNot AvailableNot Availableprednisone 20 mg tabletTAKE [...] Updated DateTime 12/20/2024 172.72 cm 25.1 kg/m2 38212.74 g Deborah Goncalves [facility] 12/20/2024 10:26:28 Date Recorded Body height Body mass index (BMI) Body weight Provider Name and Address Organization Details Last Updated DateTime 03/01/2024 172.72 cm 25.1 kg/m2 67402.74 g Deborah Bowers [facility] 03/01/2024 10:33:50 Date Recorded Body height Body mass index (BMI) Body weight Provider Name and Address Organization Details Last Updated DateTime 04/18/2025 172.72 cm 25.1 kg/m2 00380.74 g Nicola Prabhakar MD [address] [place] [address], [address] [place] [address] 04/18/2025 11:35:28 Date Recorded Body height Body mass index (BMI) Body weight Provider Name and Address Organization Details Last Updated DateTime 06/04/2024 172.72 cm 25.1 kg/m2 04276.74 g Nicola Prabhakar MD [address] [place] [address], [address] [place] [address] 06/04/2024 11:03:45 Date Recorded Body height Body mass index (BMI) Body weight Provider Name and Address Organization Details Last Updated DateTime 09/03/2024 172.72 cm 25.1 kg/m2 26900.74 Deborah Bowers [facility] 09/03/2024 14:45:55 Social History Question Answer Notes LastModified by Organization D etails LastModified Time Tobacco Smoking Status Never Smoker Nicola Prabhakar MD [address] [place] [address], [address], [facility]09/16/2023 12:33:21What Is Your Level Of Caffeine Consumption?Dyevsreipkyqvhoz43Cbhrzcidhoa not cwtostbyd34/02/2024What Was The Date Of Your Most Recent Tobacco Screening?12/20/2024doreilleyInformation not fkjyowfmm61/07/2025Have You Ever Been Counseled For Unhealthy Alcohol Use?No dsierackiInformation not ulssttelh08/17/2024What Is Your Relationship Status? MarrieddsierackiInformation not znfgzahtv06/17/2024How Many Days In The Past Year Have You Consumed 5 Or More Drinks?0dsierackiInformation not available 03/01/2024 Sex: Unknown Functional Status Question Answer Note LastModified by Organization D etails LastModified Time Do you use any illicit or recreational drugs? No dsierackiInformation not civyrmlde72/17/2024o you or have you ever used any other forms of tobacco or nicotine?NodsierackiInformation not available 03/01/2024What is your level of alcohol consumption?Emtwlxvdlpdqojwy59 Information not yyotnujua67/02/2024re you currently employed?Yesdsieracki Information not /17/2024 Mental Status None recorded. Family History Relationship Description Onset Age of this Age Resolved Age Notes LastModified by Organization Details LastModified Time Father Family history of malignant neop lasm of prostate jnttprvj98Dhq rhbuwfmsw50/02/2024 12:33:06FatherFamily history of cardiac udraiwqqdgmnmfxg58Lmt pximvnxiz73/02/2024 12:33:11 Medical History Condition Response Diabetes N Sexually Transmitted Infection N Other N Bleeding Disorder N High Blood Pressure Y Kidney Stones N Cancer N Lung Disease N Depression N High Cholesterol Y GERD/Acid Reflux N Heart Disease N Immunizations Vaccine Type Date Status Note Provider Nam e and Address Organization Details Recorded Time Influenza, split virus, quadrivalent, preservative completed Natividad youngblood [facility] Whjvbue5009/19/2023 08:50:49Influenza, split virus, quadrivalent, sinkivmgdcaf19/01/2021completedDebra Graf [facility]blood [facility] Wwmmpsa1609/19/2023 08:50:49Influenza, recombinant, quadrivalent, PF2completedDebra Eva null, [facility]09/19/2023 08:50:49zoster xgppdoauesh54/06/2020completed Natividad Prosperity null, [facility]09/19/2023 08:50:49zoster wfmrnexxnkx93/30/2019completed Natividad Prosperity null, [facility]09/19/2023 08:50:49Influenza, adjuvanted, quadrivalent, PF 08/08/2023ompletedDebra Eva null, [facility]09/19/2023 08:50:49COVID-19, mRNA, LNP-S, PF, 30 mcg/0.3 mL dose11/08/2020ompletedDebra Eva null, [facility]09/19/2023 08:50:49COVID-19, mRNA, LNP-S, PF, 30 mcg/0.3 mL dose11/29/2020ompletedDebra Prosperity null, [facility]09/19/2023 08:50:49COVID-19, mRNA, LNP-S, PF, 30 mcg/0.3 mL dose08/03/2021ompletedDebra Eva null, [facility]09/19/2023 08:50:49Pneumococcal conjugate PCV20, polysaccharide UWC712 conjugate, adjuvant, PF07/30/2023ompletedDebra Eva null, [facility]09/19/2023 08:50:49COVID-19, mRNA, LNP-S, PF, 30 mcg/0.3 mL dose, allie-jmxrduj6502/28/2022ompletedDebra Prosperity null, [facility]09/19/2023 08:50:49COVID-19, mRNA, LNP-S, bivalent, PF, 30 mcg/0.3 mL dose07/26/2022ompletedDebra Prosperity null, [facility]09/19/2023 08:50:49RSV, recombinant, protein subunit RSVpreF, adjuvant reconstituted, 0.5 mL, PF08/08/2023ompletedDebra Prosperity null, [facility]09/19/2023 08:50:49COVID-19, mRNA, LNP-S, PF, allie- sucrose, 30 mcg/0.3 mL09/10/2023ompletedDebra Eva null, [facility]09/19/2023 08:50:85Gfxk9010/16/2012completedDebra Eva null, [facility]09/19/2023 08:50:85Tevu1009/16/2006completedDebra Eva null, [facility]09/19/2023 08:50:51Pfms39/15/2023completedDebra Eva null, [facility]09/19/2023 08:50:49Influenza, split virus, trivalent, tdkpawlibqzu89/11/2003completedDebra Prosperity null, [facility]09/19/2023 08:50:49Influenza, split virus, trivalent, PF 10/16/2012completedDebra Eva null, [facility]09/19/2023 08:50:49Influenza, split virus, trivalent, PF 07/17/2007completedDebra Prosperity null, [facility]09/19/2023 08:50:49Influenza, split virus, trivalent, PF 09/09/2008completedDebra Prosperity null, [facility]09/19/2023 08:50:49Influenza, split virus, quadrivalent, PF09/30/2016completedDebra Eva null, [facility]09/19/2023 08:50:49COVID-19, mRNA, LNP-S, PF, allie- sucrose, 30 mcg/0.3 mL06/28/2024ompletedDezera Sieracki null, [place] 1584711/04/2023 14:46:00Influenza, high-dose, trivalent, PF 06/28/2024ompletedDezera Sieracki null, [place] [address]11/04/2023 14:46:01 Past Encounters Encounter ID Performer Location Encounter Start Date Encounter Closed Date Diagnosis/Indication Diagnosis SNOMED-CT Code Diagnosis ICD10 Code Diagnosis IMO Codes Diagnosis Note [id number] Nicola Prabhakar MD _[facility] [address] [facility],[address] [place] [address] 09/16/2023 11:39:00 09/22/2023 11:55:59 Prostate nodule 301545536606083 N40.2 Family history of malignant neoplasm of xemcppey916764625Z98.42 [id number] Mob[address] [place] [address] 10/27/2023 14:15:38011/03/2023 12:19:38Prostate fcqtrm371832151383804P81.2 [id number] Mobley [place] [place] [address] 12/01/2023 16:47:42012/02/2023 09:59:15Malignant neoplasm of xvgvbjvk964996199K68 3+3 low volume low [id number] Mobley [place] [place] [address] 03/01/2024 10:12:00003/02/2024 11:57:43Family history of malignant neoplasm of limrjsvl315496568B16.42 Malignant neoplasm of gmvqkgow173351988C06 3+3 low volume low risk on active surveillance.[id number] Mobley [place] [place] [address] 06/04/2024 10:47:22006/07/2024 09:30:38Malignant neoplasm of drxkzpkp991070801L64 3+3 low volume low risk on active surveillance.Family history of malignant neoplasm of fzocuixj868219287H10.42 [id number] Mobley [place] [place] [address] 09/03/2024 14:26:39111/07/2023 10:53:58Malignant neoplasm of wgbdwcfq422927520Y26 3+3 low volume low risk on active surveillance.[id number] Mobley [place] [place] [address] 12/20/2024 10:10:5204 11:19:55Malignant neoplasm of vukjoslk795679803Q67 3+3 low volume low risk on active surveillance.[id number] Prabhakar MDUA_[facility] [address] [place] [address] 04/18/2025 11:19:2608 09:49:28Malignant neoplasm of toygnpgt291877544K78 3+3 low volume low risk on active surveillance. Health Concerns Section Related Observation LastModified by Organization Detai ls LastModified Time None Recorded Concern Status LastModified by Organization Details LastModified Time None Recorded Advance Directives Directive None Recorded Payers Insurance Date Sequence Insurance Name Policy Number Policy Lundy Covered Member ID Lundy Member ID Guarantor Name 04/18/2025 2 [place] Kimo [id number] J [id number] - DOS PRIOR TO 2024 (PPO)Kimo [id number] J [id number] B-[place]: [facility] GOVERNMENT SERVICES INCPeter Tammy [id number] J Nowjeaninei [facility] - DOS 09/15/2024 AND AFTERPeter J [id number] J [id number] HEALTHCAREPeter J Nowjeaninei [id number] J Nowacki Notes Date Note Type Note Provider Name and Address Orga nization Details Recorded Time 03/01/2024 text/html CaP on follow up PSA today was 0.65 which is stable. voiding OK, no heme/dysuria.Nicola Prabhakar MD [address] [facility],[address], [place], [address], [facility] [place] Eijfkde5703/01/2024 11:33:0806/04/2024text/html follow up CaP on . PSA stable 0.7 today and due to get scheduled for baseline MRI. voiding fine, no heme/dysuriaNicola Prabhakar MD [address] [place] [address],[address], [place], [address], [facility] Gdmnkyp5806/04/2024 11:34:3412text/html follow up CaP on . had MRI done after last visit and showed consistent with CaP. PSA today down to 0.48. voiding OK, no heme/dysuria.Nicola Prabhakar MD [address] [place] [address],[address], [place], [address], [facility] Piaaond06/20/2024 15:06:1104text/html follow up low volume 3+3 CaP on . PSA up slightly to 1.0 today. voiding OK, no heme/dysuria.Deborah youngblood [facility] Apramuy1912/20/2024 10:59:5008text/html CaP on PSA up slightly to 1.1 today. voiding OK, no heme/dysuria.Nicola Prabhakar MD [address] [place] [address],[address], [place], [address], [facility] Lyiauiq0104/18/2025 12:01:24
--- OUTSIDE RECORDS SUMMARY | 2025-09-03 08:56 | XMS_ITS | Clinical Summary ---
Author Organization [employer] [facility] [employer] [facility] Address [address] [place] [address] Care Team Providers Care Epic Willow Analyst Name Role Phone Pcp, No Primary Care [...] left eye four times daily. Start after ayztnfa1507/05/2023ctive atropine (ISOPTO ATROPINE) 1 % ophthalmic solution Place 1 Drop into left eye.07/05/2023ctive ofloxacin 0.3 % ophthalmic (OCUFLOX) 0.3 % ophthalmic solution Place 1 Drop into left eye four times daily. Start after bateruq1907/05/2023ctive Encounters DateTypeDepartmentCare WkfyPuswlfpzqdd73/10/2025Orders Only [facility] [address] [place] [address] Shanell Arevalo 1 scan: (1-Ord) ZIOfrom Last 3 Months Social History Tobacco UseTypesPacks/DayYears UsedDateSmoking Tobacco: NeverSmokeless Tobacco: Never Tobacco Cessation:Counseling Given: Not Answered Alcohol UseStandard Drinks/WeekCommentsYes0 (1 standard drink = 0.6 oz pure alcohol)2-3 weeklySex and Gender InformationValueDate RecordedSex Assigned at BirthNot on fileLegal JxtKsuc4109/28/2012 7:00 AM CSTGender IdentityNot on file Sexual OrientationNot on file Last Filed Vital Signs Vital SignReadingTime TakenCommentsBlood Virotkry726/7307/05/2023 3:14 PM CDT Wvgqp927007/05/2023 3:14 PM ALVQnghzaqufsb80.4 ??C (97.5 ??F)07/05/2023 3:00 PM CDTRespiratory Rakt4211 3:14 PM CDTOxygen Popihgcxvp420%07/05/2023 3:14 PM CDTInhaled Oxygen Concentration--Vtjmof01.5 kg (162 lb)07/05/2023 12:14 PM IBOMvipth546.7 cm (5' 8)07/05/2023 12:14 PM CDTBody Mass Index24.6307/05/2023 12:14 PM CDT Plan of Treatment Health MaintenanceDue DateLast DoneCommentsTetanus fxrmwtr5602/05/1969Depression screening for age 12+1970BMI (ht and wt [...] / LotStrip Silcn 0.75x3.5x125 Sty41 [employer] - [id number] Implanted:Qty: 1 on 07/05/2023 [facility] [employer]07/15/2029S2970 / / [id number] Silcn 1.00i.D.X2.1mm Od Sty70 S3018 [employer] - [id number] Implanted:Qty: 1 on 07/05/2023 [facility] [employer]07/15/2029S3018 / / [id number] Procedures Procedure NamePriorityDate/TimeAssociated DiagnosisCommentsEXTENDED HOLTER Vnmftcj2808/04/2025 Unspecified atrial fibrillation (HC) from Last 3 Months Results * EXTENDED HOLTER (08/04/2025) Narrative Authorizing ProviderResult TypeResult StatusDeng Howell [facility]lindsay MDCARDIAC SERVICES ORDFinal Result from Last 3 Months Insurance MAJOR ARAIZA [id number] Advance Directives * Full Code (Latest Code Status on File) Date ActivatedDate LuorkpulqbbQehbmrmq95/21/2023 12:37 07/05/2023 5:32 PM QuestionAnswerCommentsCode Status Discussion:* Reviewed Preferences Care Teams Team MemberRelationshipSpecialtyStart DateEnd Date Pcp, Lsia PCP - General12/14/13
--- NOTE | 2025-09-03 09:40 | ED_ITS ---
HPI - Chest Pain General Chief Complaint: Chest Pain Stated Complaint: heart palpitations/pain Time Seen by Provider: 09/03/25 09:33 History of Present Illness HPI narrative: Patient is a 65-year-old gentleman who is status post ablation of atrial fibrillation x2 who presents with a 9 hours of chest pain with radiation to his left arm as well as continued palpitations. He was seen 3 days ago in the emergency room where frequent PVCs were noted. Patient has been on a beta- devang in the form of metoprolol in the past for symptomatic PVCs but is preferring at this time not take the metoprolol as it makes him sluggish. The chest pain is 3/10 in intensity radiates from the left side of his chest down his left arm. Upon arrival in the ER EKG shows PVCs but no acute ST or T-wave changes. Patient is otherwise feeling fine no other major complaints. Pain is seems to be fading at this time. Related Data Previous Rx's ?Medication ?Instructions ?Recorded fluticasone propionate 50 2 spray intranasal QDAY #16 grams 03/17/25 mcg/actuation nasal spray,suspension (Flonase Allergy Relief) atorvastatin 10 mg tablet 5 mg (1/2 x 10 mg) PO .Bedti me #45 08/08/25 tabs lisinopril 5 mg tablet 5 mg PO DAILY #90 tabs 08/08 sumatriptan succinate 100 mg tablet 50 mg (1/2 x 100 m g) PO ONCE PRN 08/08/25 migraine headache #9 tabs Allergies Allergy/AdvReac Type Severity Reaction Status Date / Time No Known Drug Allergies Allergy Verified 09/03/25 09:06 Review of Systems Status of ROS Reports: 10 or more systems reviewed and unremarkable except as noted in History and below [facility] Medical History Cardiac dysrhythmia ?I49.9 - Cardiac arrhythmia, unspecified (ICD-10) History of atrial fibrillation ?Z86.79 - Personal history of other diseases of the circulatory system (ICD- 10) Allergic rhinitis ?J30.9 - Allergic rhinitis, unspecified (ICD-10) Knee pain ?M25.569 - Pain in unspecified knee (ICD-10) Prostate CA ?C61 - Malignant neoplasm of prostate (ICD-10) Chest pain ?R07.9 - Chest pain, unspecified (ICD-10) Encounter for preventive care ?Z00.00 - Encounter for general adult medical examination without abnormal findings (ICD-10) Prostate nodule ?N40.2 - Nodular prostate without lower urinary tract symptoms (ICD-10) Retinal detachment ?H33.20 - Serous retinal detachment, unspecified eye (ICD-10) Leukopenia ?D72.819 - Decreased white blood cell count, unspecified (ICD-10) COVID ?U07.1 - COVID-19 (ICD-10) Screening due ?Z13.9 - Encounter for screening, unspecified (ICD-10) Family history of prostate cancer ?Z80.42 - Family history of malignant neoplasm of prostate (ICD-10) GERD (gastroesophageal reflux disease) ?K21.9 - Gastro-esophageal reflux disease without esophagitis (ICD-10) Surgical History History of vasectomy (10/16/12) ?Z98.52 - Vasectomy status (ICD-10) History of nasal septoplasty ?Z98.890 - Other specified postprocedural states (ICD-10) Family History Father Coronary artery disease Prostate cancer Social History Narrative: exercise 5 days a week, 3-4 etoh/week, no tobacco, What is your current living situation?: I presently have a place to live Problems where you live: no known problems In the past 12 months, utilities in danger of being shut off: no In past 12 months, lack of transportation kept you from medical appts, meetings, work, or getting things needed for daily living: no In the past 12 mos, have been you worried that your food would run out before you had money to buy more?: never true In the past 12 mos, the food you bought just didn't last and you didn't have money to buy more?: never true Smoking Status: Never smoker How often do you have a drink containing alcohol: never AUDIT-C Alcohol total score: 0 Non-prescribed substance use: denies use How often does anyone, including family, friends and others, physically hurt you : never How often does anyone, including family, friends and others, insult or talk down to you: never How often does anyone, including family, friends and others, threaten you with harm: never How often does anyone, including family, friends and others, scream or curse at you: never Exam Narrative Exam Narrative: EXAM GENERAL: Patient appears comfortable and well. EYES: No scleral icterus. ENT: Tympanic membranes and oropharynx normal. THYROID: no thyroid nodules or thyromegaly. LYMPH: No supraclavicular or cervical lymphadenopathy. SKIN: Visible skin seen during exam normal or with benign process only. EXT: No dependent lower extremity pedal edema. HEART: Mildly irregular rhythm. LUNGS: Clear to auscultation bilaterally with no crackles or wheezes. ABD: Soft, non tender, non distended. PSYCH: Good eye contact, speech is not pressured. Const Vital Signs, click to edit/add: Vital Signs - 24 hr 09/03/25 09:05 09/03/25 09:07 Temperature 97.3 F L Pulse Rate [Pulse Oximeter] 64 Respiratory Rate 18 Blood Pressure [Left Upper Arm] 153/79 H Pulse Oximetry 100 100 Oxygen Delivery Method Room Air Course Course ED Course: Patient seen and examined. EKG reviewed. Troponin CBC comprehensive metabolic panel pending. Vital Signs Vital signs: Initial Vital Signs Pulse Oximetry 100 09/03/25 09:05 Vital Signs Pulse Oximetry 100 09/03/25 09:05 Temperature 97.3 F L 09/03/25 09:07 Pulse Rate 64 09/03/25 09:07 Respiratory Rate 18 09/03/25 09:07 Blood Pressure 153/79 H 09/03/25 09:07 Pulse Oximetry 100 09/03/25 09:07 Oxygen Delivery Method Room Air 09/03/25 09:07 MDM - Chest Pain MDM Narrative Medical decision making narrative: Patient is evaluation is unremarkable for unstable cardiac symptoms. Does have known history of PVCs and PVCs are noted today. We discussed starting a beta- devang but patient would like to defer. No need for 2nd troponin as the patient has had symptoms for roughly 10 hours at this point. Patient is offered reassurance he can go home with primary care follow-up. Lab Data Labs: Lab Results 09/03/25 Range/Units 09:46 WBC 5.98 (4.50-11.00) K/uL RBC 4.59 (4.30-5.90) m/uL Hgb 14.4 (13.5-17.5) gm/dL Hct 41.6 (37.0-53.0) % MCV 91 (80-100) fL MCH 31 (26-34) pg MCHC 35 (32-36) gm/dL RDW Coeff of Richard 11.5 (11.5-15.5) % Plt Count 175 (140-440) K/uL Neut % (Auto) 75.6 H (42.0-72.0) % Lymph % (Auto) 11.5 L (20-44) % Kings % (Auto) 9.9 (0.0-11.0) % Eos % (Auto) 2.5 (0.0-7.0) % Baso % (Auto) 0.3 (0.0-3.0) % Neut # (Auto) 4.50 (1.7-7.0) K/uL Lymph # (Auto) 0.70 L (0.90-2.90) K/uL Kings # (Auto) 0.60 (0.00-0.90) K/UL Eos # (Auto) 0.15 (0.00-0.50) K/uL Baso # (Auto) 0.02 (0.00-0.30) K/uL Abs Immat Gran (auto) 0.01 (0.00-0.30) K/uL Imm/Tot Granulo (auto) 0.2 % Sodium 141 (135-149) mmol/L Potassium 4.8 (3.6-5.1) mmol/L Chloride 101 (96-114) mmol/L Carbon Dioxide 33 H (20-32) mmol/L Anion Gap 7 (7-15) mEq/L BUN 24 (7-30) mg/dL Creatinine 0.9 (0.5-1.5) mg/dL Estimated Creat Clear 69.35 Estimated GFR 94 ml/min Glucose 105 (60-115) mg/dL Calcium 9.5 (8.4-10.6) mg/dL Total Bilirubin 2.0 H (0.1-1.5) mg/dL AST 32 (12-35) U/L ALT 28 (4-50) U/L Alkaline Phosphatase 65 (40-150) U/L POC Troponin I High Sensi 6.1 (2.9-28.0) pg/mL Total Protein 7.2 (6.0-8.3) g/dL Albumin 4.2 (3.3-5.0) g/dL Discharge Plan Discharge Clinical Impression: Chest pain Patient Disposition: Home, Self-Care Condition: Stable Instructions: Chest Pain (ED) Additional Instructions: Continue current care Follow-up with your doctor as needed. Activity Level: No Restrictions Discharge Diet: Regular Prescriptions: No Action fluticasone propionate [Flonase Allergy Relief] 50 mcg/actuation spray,susp ension 2 spray intranasal QDAY Qty: 16 5RF Rx Instructions: administer into each nostril atorvastatin 10 mg tablet 5 mg PO .Bedtime Qty: 45 3RF lisinopril 5 mg tablet 5 mg PO DAILY Qty: 90 3RF sumatriptan succinate 100 mg tablet 50 mg PO ONCE PRN (Reason: migraine headache) Qty: 9 3RF Rx Instructions: take one tablet at onset of headache , may repeat in 2 hrs max daily dose 200mg Follow Up/Referrals: Deng Uribe MD [Primary Care Provider, Family Practice] Stand Alone Forms: MyHealth Info Instructions
[2025-09-03 09:53] LABS: Hematocrit* 41.6 % (37.0-53.0); Hemoglobin* 14.4 gm/dL (13.5-17.5); Immature Granulocytes Abs Auto 0.01 K/uL (0.00-0.30); Immature Granulocytes Pct Auto 0.2 %; Mean Corpuscular HGB Conc 35 gm/dL (32-36); Mean Corpuscular Hemoglobin 31 pg (26-34); Mean Corpuscular Volume 91 fL (80-100); RDW Coefficient of Variation % 11.5 % (11.5-15.5); Red Blood Count* 4.59 m/uL (4.30-5.90); White Blood Count* 5.98 K/uL (4.50-11.00)
[2025-09-03 10:02] LABS: Lymphocytes Absolute Auto 0.70 K/uL (0.90-2.90); Slide Review Reflex No
[2025-09-03 10:05] LABS: Albumin* 4.2 g/dL (3.3-5.0); Chloride* 101 mmol/L (96-114); Sodium* 141 mmol/L (135-149)
[2025-09-03 10:06] LABS: Potassium* 4.8 mmol/L (3.6-5.1)
[2025-09-03 10:08] LABS: Alanine Aminotransferase* 28 U/L (4-50); Alkaline Phosphatase* 65 U/L (40-150); Anion Gap 7 mEq/L (7-15); Aspartate Amino Transferase* 32 U/L (12-35); Bilirubin Total* 2.0 mg/dL (0.1-1.5); Blood Urea Nitrogen* 24 mg/dL (7-30); Calcium* 9.5 mg/dL (8.4-10.6); Carbon Dioxide* 33 mmol/L (20-32); Creatinine* 0.9 mg/dL (0.5-1.5); Est. Creatinine Clearance* 69.35; Estimated Glomerular Filt Rate 94 ml/min; Glucose* 105 mg/dL (60-115); Total Protein* 7.2 g/dL (6.0-8.3)
== END 2025-09-03 10:31 | disposition home or self-care (01) ==
PROVIDERS: Emergency Provider Internal Medicine; PCP Family Medicine
DX: R07.89 Other chest pain (principal); R00.2 Palpitations; Z98.890 Other specified postprocedural states
CPT/HCPCS: 36415; 80053; 84484; 85025; 93005; 94761; 99283; 99284